=== PATIENT | female | born 1965 | race Caucasian/White ===

== ENCOUNTER 2019-06-25 15:05 | Emergency (ER) | payer MEDICARE, OTHER ==
[~2019-06-25] VITALS: Ht 170.2 cm; Wt 90.9 kg
[~2019-06-25 15:05] MED LIST: LORTAB 5/500 501 TAB PO; NO HOME MEDICATIONS
[2019-06-25 15:17] VITALS: TEMP 98.5
[2019-06-25 16:12] LABS: COLLECTION METHOD CLEAN CATCH
[2019-06-25 16:18] LABS: MUCOUS Present /lpf; PH 5 (5-8); SQUAMOUS EPITHELIAL 0-2 /hpf; URINE APPEARANCE Clear; URINE BACTERIA None Seen /hpf; URINE BILIRUBIN Negative (NEGATIVE); URINE BLOOD Negative (NEGATIVE); URINE COLOR Yellow; URINE GLUCOSE Negative (NEGATIVE); URINE KETONE Negative (NEGATIVE); URINE LEUKOCYTE ESTERASE Negative (NEGATIVE); URINE NITRATE Negative (NEGATIVE); URINE PROTEIN(semi-quant) Negative (NEGATIVE); URINE RBC 0-2 /hpf; URINE UROBILINOGEN >=4.0 mg/dL (NEGATIVE)
[2019-06-25 16:32] LABS: TRICYCLIC ANTIDEPRESS URINE NEGATIVE
[2019-06-25 16:36] LABS: BASO # 0.1 (0.0-0.2); BASO % 0.5 % (0.0-2.0); EOS # 0.3 (0.0-0.7); EOS % 2.9 % (0-4.0); GRAN # 5.9 (1.4-6.5); GRAN % 56.2 % (42.2-75.2); HEMATOCRIT 43.2 % (37.0-47.0); HEMOGLOBIN 14.1 g/dl (12.5-16.0); LYMPH # 3.6 (1.2-3.4); LYMPH % 34.8 % (20.0-51.0); MEAN CELL VOLUME 91 fl (80.0-100.0); MEAN CORPUSCULAR HEMOGLOBIN 30 pg (27.0-31.0); MEAN CORPUSCULAR HGB CONC 33 g/dl (33.0-37.0); MEAN PLATELET VOLUME 10.4 fl (7.4-10.4); MONO # 0.5 (0.1-0.6); PLATELET COUNT 242 K/mm3 (130-400); RED BLOOD COUNT 4.75 M/mm3 (4.10-5.30); REDCELL DISTRIBUTION WIDTH-CV 13.7 % (11.5-14.5)
[2019-06-25 16:48] LABS: ACETAMINOPHEN < 10 ug/mL (10-30); ALANINE AMINOTRANSFERASE 49 U/L (9-52); ALBUMIN 4.7 gm/dL (3.5-5.0); ALCOHOL(ethanol),MEDICAL < 10 mg/dL; ALKALINE PHOSPHATASE 106 U/L (50-136); ANION GAP 10 mmol/L (7-16); AST,SGOT 47 U/L (15-37); BILIRUBIN,TOTAL 1.1 mg/dL (0.0-1.0); BLOOD UREA NITROGEN 16 mg/dL (7-17); CALCIUM 9.9 mg/dL (8.4-10.2); CARBON DIOXIDE 28 mmol/L (22-30); CHLORIDE 104 mmol/L (98-107); CREATININE, serum 0.58 (0.52-1.25); GLUCOSE 95 mg/dL (74-106); SODIUM 141 mmol/L (137-145); TOTAL PROTEIN 8.8 gm/dL (6.4-8.2)
[2019-06-25 19:32] VITALS: BP 112/82; PULSE 97
--- NOTE | 2019-06-26 16:17 | NUR ---
The patient was medically cleared from the ED (06/25). The patient was needing a place to stay. DANI reports the patient cannot return to their [facility]. JOCELINE contacted [facility] in [place]. The patient spoke to Brenna and patient stated to Brenna she needed longer than a temporary stay. [facility] cannot accept, they are a temporary usp and require people to search for jobs after the third day. SW contacted [facility] [place] and they do not take people from out of town. Hospital security is going to contact [facility] since the patient has been in the waiting room for 24 hours. JOCELINE collaborated the above information with the electrician [employer].
--- NOTE | 2019-06-27 11:35 | NUR ---
before and after school daycare worker met with patient and left messages for patient's son Buster Kincaid [phone] and sister Renetta, . Worker spoke with [employer] office and [facility] police and [facility] and was unsuccessful with patient being a candidate for "self harm". Worker collaborated with house superviser and security and provided patient a taxi voucher to get to [facility] in [place]. Patient states she will take the bus to [place].
--- NOTE | 2019-06-27 11:39 | NUR ---
workers compensation defense attorney filed an APS report [id number].
== END 2019-06-25 19:32 | disposition home or self-care (01) ==
LOC: COL.ER 15:05
PROVIDERS: Emergency Medicine
DX: R60.9 Edema, unspecified (principal); R11.0 Nausea; Z90.89 Acquired absence of other organs; Z90.710 Acquired absence of both cervix and uterus; Z59.1 Inadequate housing